=== PATIENT | male | born 1995 | race Hispanic/Latino ===

== ENCOUNTER 2017-01-17 10:55 | Emergency (ER) | payer SELFPAY ==
[2017-01-17] MEDS ORDERED: POVIDONE IODINE 10 % 15 ML UD TOP ONE (12:38)
[2017-01-17] MEDS ORDERED: LIDOCAINE 1% 10 ML VIAL INJ ONE (12:38)
[2017-01-17] MEDS ORDERED: CHLORHEXIDINE GLUCONATE 4 % 15 ML UD TOP ONE (12:38)
[2017-01-17 12:50] VITALS: BP 131/83; TEMP 98.5; O2SAT 98
[2017-01-17] MEDS ORDERED: NEOMYCIN-BACITRACIN-POLYMYXIN 0.9 GM UD TOP ONE (13:09)
--- NOTE | 2017-01-17 13:09 | ED.PDOC ---
History of Present Illness - General Chief Complaint: Laceration Stated Complaint: laceration to the left arm Time Seen by Provider: 01/17/17 13:06 Source: patient Exam Limitations: no limitations - History of Present Illness Initial Comments: PT REPORTS SUSTAINING 2 LACERATIONS TO THE LEFT ARM WHILE OH. PT REPORTS A PIECE OF METAL HIT HIM. HE DENIES ANY POSSIBILITY OF RETAINED FB. Timing/Duration: just prior to arrival Severity: moderate Location: extremities Improving Factors: immobilization Worsening Factors: movement Associated Symptoms: denies symptoms Review of Systems - Review of Systems Constitutional: Denies: chills, fever EENTM: Denies: nose congestion, throat pain Respiratory: Denies: cough, short of breath Skin: States: see HPI, other - LACERATION. Denies: change in color Past Medical History (General) - Patient Medical History Hx Seizures: No Hx Stroke: No Hx Dementia: No Hx Asthma: No Hx of COPD: No Hx Cardiac Disorders: No Hx Congestive Heart Failure: No Hx Pacemaker: No Hx Hypertension: No Hx Thyroid Disease: No Hx Diabetes: No Hx Gastroesophageal Reflux: No Hx Renal Disease: No Hx of HIV: No Hx MRSA: No Surgical History: no surgical history - Vaccination History Hx Tetanus, Diphtheria Vaccination: No - Social History Hx Tobacco Use: No - Triage Comment ED Triage Comment: Pt states a piece of metal fell off the roof and landed on his forearm. Pt has 2 lacerations approx 2 inches long each. Family Medical History - Family History Mother Family History: Unknown Physical Exam - Physical Exam General Appearance: Alert, Comfortable, No apparent distress Eyes, Ears, Nose, Throat Exam: normal ENT inspection Neck: normal inspection Respiratory: no respiratory distress Extremity: other - TWO 4CM PARALLEL LACERATIONS TO THE ANTERIOR LATERAL ASPECT OF THE LEFT FOREARM Neurologic: normal mood/affect, oriented x 3 Skin Exam: warm/dry, normal color Procedures - Laceration/Wound Repair Left Arm Wound Length (cm): 8 - TWO 4CM LACERATIONS Wound's Depth, Shape: superficial Wound Explored: no foreign body removed Irrigated w/ Saline (cc's): 250 Betadine Prep?: Yes Anesthesia: 1% Lidocaine Volume Anesthetic (cc's): 8 Wound Repaired With: sutures Suture Size/Type: 4:0, prolene Number of Sutures: 10 Layer Closure?: No Sterile Dressing Applied?: Yes Departure - Departure Clinical Impression: Accidental laceration Time of Disposition: 13:14 Disposition: Discharge to Home or Self Care Condition: Good Departure Forms: ED Discharge - Pt. Copy, Patient Portal Self Enrollment Instructions: DI for Laceration Repair -- Simple Additional Instructions: PT INSTRUCTED TO RETURN TO THE ER IN 7-10 FOR SUTURE REMOVAL. RETURN SOONER IF THERE ARE SIGNS OF INFECTION.
[2017-01-17] MEDS: TETANUS,DIPHTHERIA,PERTUSSIS 1 EA SYG IM ONE (13:11)
== END 2017-01-17 13:20 | disposition home or self-care (01) ==
LOC: ER 10:55
DX: S51.812A Laceration without foreign body of left forearm, initial encounter (principal); Z23 Encounter for immunization; W22.8XXA Striking against or struck by other objects, initial encounter; Y92.9 Unspecified place or not applicable